=== PATIENT | male | born 1990 | race Caucasian/White ===

== ENCOUNTER 2017-10-18 18:45 | Emergency (ER) | payer SELFPAY ==
[~2017-10-18] VITALS: Ht 170.2 cm; Wt 72.6 kg
[2017-10-18 18:59] VITALS: BP 120/74
[2017-10-18 19:46] LABS: APPEARANCE,URINE Clear (CLEAR); BILIRUBIN,URINE Negative (NEGATIVE); BLOOD, URINE Trace-intact Ery/uL (NEGATIVE); COLOR,URINE Yellow (YELLOW); KETONES,URINE Negative (NEGATIVE); LEUKOCYTE ESTERASE ,URINE Negative (NEGATIVE); NITRITE, URINE Negative (NEGATIVE); PROTEIN,URINE Negative (NEGATIVE); UGLUCOSE Negative (NEGATIVE)
[2017-10-18 20:08] LABS: BACTERIA,URINE Few /HPF (None Seen); RBC,URINE 0-2 /HPF (0-2); SQUAMOUS EPITHELIAL CELL,UR Few /HPF (None Seen); URINE AMORPHOUS URATE Few /HPF (None Seen)
[2017-10-18 20:09] LABS: MUCUS,URINE Few /LPF (None Seen)
[2017-10-18] MEDS ORDERED: CEFTRIAXONE 500 MG VIAL IM ONE (20:30)
[2017-10-18] MEDS ORDERED: AZITHROMYCIN 250 MG TABLET PO ONE (20:30)
[2017-10-18] MEDS ORDERED: AZITHROMYCIN 250 MG TABLET ONE (20:34)
[2017-10-18] MEDS ORDERED: CEFTRIAXONE 500 MG VIAL ONE (20:34)
[2017-10-18] MEDS ORDERED: LIDOCAINE 0.5% HCL 50 ML VIAL ONE (20:35)
== END 2017-10-18 20:45 | disposition home or self-care (01) ==
LOC: ER 18:46
DX: R30.0 Dysuria (principal); F17.200 Nicotine dependence, unspecified, uncomplicated; Z20.2 Contact with and (suspected) exposure to infections with a predominantly sexual mode of transmission; Z60.2 Problems related to living alone
CPT/HCPCS: 81000-TC; 87491; 87591; A4606; J0696; J3490; Z7610